=== PATIENT | female | born 1935 | race Caucasian/White ===

== ENCOUNTER → 2017-04-16 | Outpatient (CLI) | payer MEDICARE ==
[~2017-04-16] MED LIST: ALLEGRA ALLERG180 MG PO; ALLEGRA180 MG PO; ASPERDRINK81 MG PO; ASPIRIN81 M1 PO; CARDIZEM SR; CENTRUM SILVER PO; CLOPIDOGREL75 MG PO; CYCLOBENZAPRINE5 MG PO; DILTIAZEM 24HR180 M1 PO; DIOVAN HCT 80/11 TAB PO; DIOVAN80 M1 DOB; K-DUR20 ME1 DOB; LIPITOR PO; METOPROLOL SUCC50 MG PO; MULTI-DAY VITAM1 TAB PO; NASONEX17 GM; VIT C PO; VITAMIN C500 M1 PO
--- NOTE | ~2017-04-16 | BD1 ---
[facility] A Service of [facility] & [facility] RADIOLOGY TEXT RESULTS PATIENT: AMBER BLACKWELL LOCATION: [facility] : 37 UNIT #: [id number] AGE: [address]: Sunny Bear MD SEX: F ORDER DR: [id number] [facility] [address] [place], [place] [address] [id number] O MR#: [id number] Acc #: [id number] NAME: AMBER BLACKWELL : 1935 SEX: F STUDY DATE/TIME: 04/16/2017 12:53 UNIT: [facility] ROOM: STUDY DESCRIPTION: BD Dexa Bone Dens 1+ Site Attending Physician: Sunny Bear Jr., M.D. Referring Physician: Sunny Bear Jr., M.D. Ordering Physician: Sunny Bear Jr., M.D. Primary Care Physician: Sunny Bear Jr., M.D. MEDICAL IMAGING REPORT This report is preliminary unless electronic signature is present EXAM DEXA scan 04/16/2017 HISTORY Status post menopause with no hormone replacement therapy. Osteopenia. Arthritis. Hypertension with blood pressure medication for 30 years. FINDINGS Bone mineral density in the lumbar spine from L1-L4 is 1.058 g/cm2 which is 0.1 standard deviations above the mean when compared to the young adult reference population which is within the range of normal. This is 2.8 standard deviations above the mean when compared to the age-matched population. Bone mineral density in the left femoral neck was 0.686 g/cm2 which is 1.5 standard deviations below the mean when compared to the young adult reference population which is characteristic of osteopenia. This is 0.9 standard deviations above the mean when compared to the age-matched population. IMPRESSION Bone mineral density in the lumbar spine within the range of normal and within the left hip characteristic of osteopenia. Dictated by... Bhavin García M.D. THIS IS AN ELECTRONICALLY VERIFIED REPORT Bhavin García M.D. at 04/17/2017 9:56 AM KRT/to TD: 04/16/2017 20:04 JOB #: [id number] MEDICAL IMAGING REPORT [facility]. [facility] A Service of [facility] RADIOLOGY TEXT RESULTS PATIENT: AMBER BLACKWELL LOCATION: [facility] : 37 UNIT #: [id number] AGE: [address]: Sunny Bear MD SEX: F ORDER DR: Page 1 of 1 COPY
--- NOTE | ~2017-04-16 | MY29 ---
[facility] A Service of [facility] RADIOLOGY TEXT RESULTS PATIENT: AMBER BLACKWELL LOCATION: [facility] : 37 UNIT #: [id number] AGE: [address]: Sunny Bear MD SEX: F ORDER DR: [id number] [facility] [address] [place], [place] [address] [id number] O MR#: [id number] Acc #: [id number] NAME: AMBER BLACKWELL : 1935 SEX: F STUDY DATE/TIME: 04/16/2017 13:05 UNIT: [facility] ROOM: STUDY DESCRIPTION: MY RIAN SCREENING W/ CAD BILAT Attending Physician: Sunny Bear Jr., M.D. Referring Physician: Sunny Bear Jr., M.D. Ordering Physician: Sunny Bear Jr., M.D. Primary Care Physician: Sunny Bear Jr., M.D. MEDICAL IMAGING REPORT This report is preliminary unless electronic signature is present EXAM Digital screening mammogram 04/16/2017, [facility] HISTORY 81-year-old woman; positive family history, sister age 60. Annual screening. COMPARISON None available. No mammogram since 1999. FINDINGS Digital imaging of each breast was completed, utilizing screening protocol. Review includes FDA-approved CAD device. Breast parenchyma is heterogeneously dense with a small nodular pattern in each breast. Subareolar duct prominence is noted bilaterally. Benign calcifications are also present bilaterally. I see no suspicious mass. There are no suspicious microcalcifications and no architectural deformity. IMPRESSION Benign mammogram. Annual screening recommended. Patients over the age of 40 are entered into a reminder system with target due date for the next mammogram. A result letter will also be sent to the patient. BIRADS: 2 Benign finding. Dictated by... Hung Lopez M.D. THIS IS AN ELECTRONICALLY VERIFIED REPORT Hung Lopez M.D. at 04/17/2017 2:38 PM [facility] A Service of [facility] RADIOLOGY TEXT RESULTS PATIENT: AMBER BLACKWELL LOCATION: [facility] : 37 UNIT #: [id number] AGE: [address]: Sunny Bear MD SEX: F ORDER DR: Mumtaz TD: 04/17/2017 12:15 JOB #: [id number] MEDICAL IMAGING REPORT Page 1 of 1 COPY
== END | disposition home or self-care (01) ==
LOC: CWCC 12:10
DX: Z12.31 Encounter for screening mammogram for malignant neoplasm of breast (principal); Z80.3 Family history of malignant neoplasm of breast; Z13.820 Encounter for screening for osteoporosis; Z78.0 Asymptomatic menopausal state
CPT/HCPCS: 77080; G0202